=== PATIENT | male | born 1975 | race Caucasian/White ===

== ENCOUNTER 2022-12-23 09:30 | Inpatient (IN) | payer OTHER ==
[2022-12-23 10:28] VITALS: BMI 27.8
[2022-12-23] MEDS ORDERED: BENZOCAINE/MENTHOL (CHLORASEPTIC ) LOZENGE MM PRN (11:17)
[2022-12-23] MEDS ORDERED: MAGNESIUM HYDROX 2400MG/30ML ORAL SUSPENSION 30 ML CUP PO PRN (11:17)
[2022-12-23] MEDS ORDERED: DICYCLOMINE HCL 10 MG CAPSULE PO PRN (11:17)
[2022-12-23] MEDS ORDERED: guaiFENesin 600 MG TABLET.ER (FP) PO PRN (11:17)
[2022-12-23] MEDS ORDERED: BISMUTH SUBSALICYLATE 524 MG/30 ML PO PRN (11:17)
[2022-12-23] MEDS ORDERED: NALOXONE HCL 0.4 MG/ML VIAL IM PRN (11:17)
[2022-12-23] MEDS ORDERED: BENZONATATE 200 MG CAPSULE PO PRN (11:17)
[2022-12-23] MEDS ORDERED: IBUPROFEN 400 MG TABLET (FP) PO PRN (11:17)
[2022-12-23] MEDS ORDERED: POLYETHYLENE GLYCOL (HEALTHYLAX) 3350 17 GM PACKET PO PRN (11:17)
[2022-12-23] MEDS ORDERED: NICOTINE POLACRILEX 2 MG GUM BUC PRN (11:17)
[2022-12-23] MEDS ORDERED: LOPERAMIDE HCL 2 MG CAPSULE PO PRN (11:17)
[2022-12-23] MEDS ORDERED: NALOXONE HCL (KLOXXADO) 8 MG SPRAY NS PRN (11:17)
[2022-12-23] MEDS ORDERED: MAG HYDROX/AL HYDROX/SIMETH 30 ML UNIT-DOSE CUP PO PRN (11:17)
[2022-12-23] MEDS ORDERED: diazePAM 5 MG TABLET ONE (11:28)
[2022-12-23] MEDS: diazePAM 5 MG TABLET PO ONE ×2 (11:30→16:16)
[2022-12-23 14:20] LABS: HEMATOCRIT 37.9 % (35.4-49); MCH 33.5 pg (25.7-33.7); MCHC 34.3 g/dl (32.0-35.9); MEAN CELL VOLUME 97.9 fl (80-96); MEAN PLT VOLUME 8.3 fl (7.5-11.1); PLATELET COUNT 167 10^3/uL (134-434); RBC 3.88 M/mm3 (4.00-5.60); RDW 14.2 % (11.9-15.9); WHITE BLOOD COUNT 3.1 K/mm3 (4.0-10.0)
[2022-12-23 14:41] LABS: ALBUMIN 3.8 g/dl (3.4-5.0)
[2022-12-23 14:42] LABS: CALCIUM 8.8 mg/dL (8.5-10.1)
[2022-12-23 14:43] LABS: BLOOD UREA NITROGEN 18.5 mg/dL (7-18)
[2022-12-23 14:45] LABS: TOT PROT 7.3 g/dl (6.4-8.2)
[2022-12-23 14:46] LABS: BILIRUBIN,TOTAL 0.4 mg/dL (0.2-1); CREATININE 0.7 mg/dL (0.55-1.3)
[2022-12-23] MEDS: METHOCARBAMOL 500 MG TABLET PO PRN (15:49)
[2022-12-23] MEDS: TRIMETHOBENZAMIDE HCL 200MG/2ML INJ IM PRN (15:50)
[2022-12-23] MEDS: diazePAM 5 MG TABLET PO SCH ×2 (17:00→22:11)
[2022-12-23] MEDS: MELATONIN 5 MG TABLETS PO SCH (22:10)
[2022-12-23] MEDS: THIAMINE HCL 100 MG TABLET (FP) PO SCH (22:11)
[2022-12-24] MEDS: diazePAM 5 MG TABLET PO SCH ×4 (05:24→22:09)
[2022-12-24] MEDS: TRIMETHOBENZAMIDE HCL 200MG/2ML INJ IM PRN (05:25)
[2022-12-24] MEDS: methaDONE HCL 40 MG DISPERSABLE TABLET PO SCH (06:10)
[2022-12-24] MEDS: PRENATAL VITAMINS W/ FOLIC ACID TABLET (FP) PO SCH (10:14)
[2022-12-24] MEDS: IBUPROFEN 600 MG TABLET (FP) PO PRN ×2 (10:15→22:14)
[2022-12-24] MEDS: NICOTINE 10 MG CARTRIDGE (INHALER) IH PRN (10:18)
[2022-12-24] MEDS: METHOCARBAMOL 500 MG TABLET PO PRN ×2 (10:19→17:21)
[2022-12-24] MEDS: diazePAM 5 MG TABLET PO PRN ×2 (14:16→19:09)
[2022-12-24] MEDS: MELATONIN 5 MG TABLETS PO SCH (22:11)
[2022-12-24] MEDS: THIAMINE HCL 100 MG TABLET (FP) PO SCH (22:11)
[2022-12-25] MEDS: methaDONE HCL 40 MG DISPERSABLE TABLET PO SCH (05:09)
[2022-12-25] MEDS: diazePAM 5 MG TABLET PO SCH ×3 (05:11→22:21)
[2022-12-25] MEDS: IBUPROFEN 600 MG TABLET (FP) PO PRN ×2 (05:11→13:11)
[2022-12-25] MEDS: PRENATAL VITAMINS W/ FOLIC ACID TABLET (FP) PO SCH (10:19)
[2022-12-25] MEDS: diazePAM 5 MG TABLET PO PRN (10:21)
[2022-12-25] MEDS: ACETAMINOPHEN 325 MG TABLET (FP) PO PRN ×2 (10:21→17:32)
[2022-12-25] MEDS: NICOTINE 10 MG CARTRIDGE (INHALER) IH PRN ×2 (10:23→17:43)
[2022-12-25] MEDS ORDERED: MELATONIN 5 MG TABLETS PO SCH (14:49)
[2022-12-25] MEDS: METHOCARBAMOL 500 MG TABLET PO PRN ×2 (17:32→22:22)
[2022-12-25] MEDS: THIAMINE HCL 100 MG TABLET (FP) PO SCH (22:20)
[2022-12-26] MEDS: methaDONE HCL 40 MG DISPERSABLE TABLET PO SCH (05:07)
[2022-12-26] MEDS: IBUPROFEN 600 MG TABLET (FP) PO PRN ×3 (05:08→22:08)
[2022-12-26] MEDS: diazePAM 5 MG TABLET PO SCH ×2 (05:08→17:28)
[2022-12-26] MEDS: NICOTINE 10 MG CARTRIDGE (INHALER) IH PRN ×3 (06:37→14:27)
[2022-12-26] MEDS: PRENATAL VITAMINS W/ FOLIC ACID TABLET (FP) PO SCH (10:27)
[2022-12-26] MEDS: ACETAMINOPHEN 325 MG TABLET (FP) PO PRN (10:28)
[2022-12-26] MEDS: METHOCARBAMOL 500 MG TABLET PO PRN ×2 (10:29→22:09)
[2022-12-26 11:18] LABS: URINE APPEARANCE CLEAR; URINE BILIRUBIN NEGATIVE (NEGATIVE); URINE COLOR YELLOW; URINE GLUCOSE (UA) NEGATIVE (NEGATIVE); URINE KETONE NEGATIVE (NEGATIVE); URINE LEUK ESTERASE NEGATIVE (NEGATIVE); URINE NITRITE NEGATIVE (NEGATIVE); URINE PROTEIN NEGATIVE (NEGATIVE); URINE UROBILINOGEN 0.2 mg/dL (0.2-1.0)
[2022-12-26] MEDS: TOLNAFTATE 1% CREAM 15 GM TUBE TP SCH ×2 (12:50→22:09)
[2022-12-26] MEDS ORDERED: SUVOREXANT 10 MG TABLET PO PRN (22:00)
[2022-12-26] MEDS: THIAMINE HCL 100 MG TABLET (FP) PO SCH (22:09)
[2022-12-27] MEDS: methaDONE HCL 40 MG DISPERSABLE TABLET PO SCH (05:16)
[2022-12-27] MEDS: IBUPROFEN 600 MG TABLET (FP) PO PRN (05:17)
[2022-12-27] MEDS ORDERED: diazePAM 5 MG TABLET PO ONE (06:00)
[2022-12-27] MEDS: NICOTINE 10 MG CARTRIDGE (INHALER) IH PRN ×2 (06:03→10:25)
[2022-12-27 09:54] VITALS: BP 136/89; PULSE 79; RESP 18; TEMP 98.3
[2022-12-27] MEDS: PRENATAL VITAMINS W/ FOLIC ACID TABLET (FP) PO SCH (10:24)
[2022-12-27] MEDS: ACETAMINOPHEN 325 MG TABLET (FP) PO PRN (10:25)
[2022-12-27] MEDS: TOLNAFTATE 1% CREAM 15 GM TUBE TP SCH (10:29)
== END 2022-12-27 11:55 | disposition other institution (70) | DRG 773 ==
LOC: YASAS 09:30 → Y6N 11:37
PROVIDERS: ADMIT Allergy & Immunology; ATTEND Surgery
PROC: HZ2ZZZZ Detoxification Services for Substance Abuse Treatment (ICD-10-PCS; principal; 2022-12-23)
DX: F11.23 Opioid dependence with withdrawal (principal); F10.230 Alcohol dependence with withdrawal, uncomplicated; F13.20 Sedative, hypnotic or anxiolytic dependence, uncomplicated; F17.210 Nicotine dependence, cigarettes, uncomplicated; F19.280 Other psychoactive substance dependence with psychoactive substance-induced anxiety disorder; F19.282 Other psychoactive substance dependence with psychoactive substance-induced sleep disorder; F43.10 Post-traumatic stress disorder, unspecified; J43.9 Emphysema, unspecified; Z86.69 Personal history of other diseases of the nervous system and sense organs; Z56.0 Unemployment, unspecified; Z59.01 Sheltered homelessness
CPT/HCPCS: 36415; 71046-TC-FY; 80053; 81003; 82140; 85027; 86780; 87811; C9803-CS; Q0162; U0003; U0005

== ENCOUNTER 2022-12-27 11:12 | Inpatient (IN) | payer OTHER ==
[2022-12-27] MEDS ORDERED: MAG HYDROX/AL HYDROX/SIMETH 30 ML UNIT-DOSE CUP PO PRN (12:16)
[2022-12-27] MEDS ORDERED: NICOTINE POLACRILEX 4 MG GUM BUC PRN (12:16)
[2022-12-27] MEDS ORDERED: BENZOCAINE/MENTHOL (CHLORASEPTIC ) LOZENGE MM PRN (12:16)
[2022-12-27] MEDS ORDERED: NALOXONE HCL (KLOXXADO) 8 MG SPRAY NS PRN (12:16)
[2022-12-27] MEDS ORDERED: LOPERAMIDE HCL 2 MG CAPSULE PO PRN (12:16)
[2022-12-27] MEDS ORDERED: BENZONATATE 200 MG CAPSULE PO PRN (12:16)
[2022-12-27] MEDS ORDERED: MAGNESIUM HYDROX 2400MG/30ML ORAL SUSPENSION 30 ML CUP PO PRN (12:16)
[2022-12-27] MEDS ORDERED: NICOTINE 14 MG/24 HOURS TOPICAL PATCH TD PRN (12:16)
[2022-12-27] MEDS ORDERED: guaiFENesin 600 MG TABLET.ER (FP) PO PRN (12:16)
[2022-12-27] MEDS ORDERED: NALOXONE HCL 0.4 MG/ML VIAL IVPUSH PRN (12:16)
[2022-12-27] MEDS ORDERED: POLYETHYLENE GLYCOL (HEALTHYLAX) 3350 17 GM PACKET PO PRN (12:16)
[2022-12-27] MEDS: GABAPENTIN 300 MG CAPSULE PO SCH ×2 (13:07→21:24)
[2022-12-27] MEDS: MELATONIN 5 MG TABLETS PO SCH (21:25)
[2022-12-27] MEDS: METHOCARBAMOL 500 MG TABLET PO PRN (21:25)
[2022-12-27] MEDS: THIAMINE HCL 100 MG TABLET (FP) PO SCH (21:25)
[2022-12-27] MEDS: hydrOXYzine PAMOATE 25 MG CAPSULE (FP) PO PRN (21:25)
[2022-12-27] MEDS: IBUPROFEN 600 MG TABLET (FP) PO PRN (21:29)
[2022-12-28] MEDS: GABAPENTIN 300 MG CAPSULE PO SCH ×3 (06:17→21:16)
[2022-12-28] MEDS: methaDONE HCL 40 MG DISPERSABLE TABLET PO SCH (06:17)
[2022-12-28] MEDS: IBUPROFEN 600 MG TABLET (FP) PO PRN ×2 (06:19→14:15)
[2022-12-28] MEDS: NICOTINE 10 MG CARTRIDGE (INHALER) IH PRN ×3 (06:39→21:18)
[2022-12-28] MEDS: PRENATAL VITAMINS W/ FOLIC ACID TABLET (FP) PO SCH (09:41)
[2022-12-28] MEDS: TOLNAFTATE 1% CREAM 15 GM TUBE TP SCH ×2 (09:42→21:25)
[2022-12-28] MEDS: THIAMINE HCL 100 MG TABLET (FP) PO SCH (21:15)
[2022-12-28] MEDS: MELATONIN 5 MG TABLETS PO SCH (21:15)
[2022-12-28] MEDS: hydrOXYzine PAMOATE 25 MG CAPSULE (FP) PO PRN (21:16)
[2022-12-28] MEDS: IBUPROFEN 400 MG TABLET (FP) PO PRN (21:16)
[2022-12-29] MEDS: methaDONE HCL 40 MG DISPERSABLE TABLET PO SCH (06:15)
[2022-12-29] MEDS: GABAPENTIN 300 MG CAPSULE PO SCH ×3 (06:15→21:09)
[2022-12-29] MEDS: IBUPROFEN 600 MG TABLET (FP) PO PRN (06:16)
[2022-12-29] MEDS: NICOTINE 10 MG CARTRIDGE (INHALER) IH PRN ×2 (06:19→14:16)
[2022-12-29] MEDS: PRENATAL VITAMINS W/ FOLIC ACID TABLET (FP) PO SCH (09:35)
[2022-12-29] MEDS: ACETAMINOPHEN 325 MG TABLET (FP) PO PRN (09:36)
[2022-12-29] MEDS: TOLNAFTATE 1% CREAM 15 GM TUBE TP SCH ×2 (10:55→21:19)
[2022-12-29] MEDS: IBUPROFEN 400 MG TABLET (FP) PO PRN ×2 (14:17→21:10)
[2022-12-29] MEDS: THIAMINE HCL 100 MG TABLET (FP) PO SCH (21:08)
[2022-12-29] MEDS: MELATONIN 5 MG TABLETS PO SCH (21:08)
[2022-12-29] MEDS: hydrOXYzine PAMOATE 25 MG CAPSULE (FP) PO PRN (21:09)
[2022-12-30] MEDS: GABAPENTIN 300 MG CAPSULE PO SCH ×3 (06:12→21:06)
[2022-12-30] MEDS: methaDONE HCL 40 MG DISPERSABLE TABLET PO SCH (06:12)
[2022-12-30] MEDS: IBUPROFEN 600 MG TABLET (FP) PO PRN ×4 (06:13→21:08)
[2022-12-30] MEDS: NICOTINE 10 MG CARTRIDGE (INHALER) IH PRN ×3 (06:14→21:08)
[2022-12-30] MEDS: TOLNAFTATE 1% CREAM 15 GM TUBE TP SCH ×2 (09:32→21:10)
[2022-12-30] MEDS: PRENATAL VITAMINS W/ FOLIC ACID TABLET (FP) PO SCH (09:33)
[2022-12-30] MEDS: MELATONIN 5 MG TABLETS PO SCH (21:06)
[2022-12-30] MEDS: THIAMINE HCL 100 MG TABLET (FP) PO SCH (21:06)
[2022-12-30] MEDS: hydrOXYzine PAMOATE 25 MG CAPSULE (FP) PO PRN (21:07)
[2022-12-30] MEDS: BACITRACIN 0.9 GM PACKET TP SCH (21:08)
[2022-12-31] MEDS: IBUPROFEN 600 MG TABLET (FP) PO PRN ×2 (06:20→21:17)
[2022-12-31] MEDS: methaDONE HCL 40 MG DISPERSABLE TABLET PO SCH (06:20)
[2022-12-31] MEDS: GABAPENTIN 300 MG CAPSULE PO SCH ×3 (06:20→21:17)
[2022-12-31] MEDS: NICOTINE 10 MG CARTRIDGE (INHALER) IH PRN ×3 (06:37→21:17)
[2022-12-31] MEDS: PRENATAL VITAMINS W/ FOLIC ACID TABLET (FP) PO SCH (09:31)
[2022-12-31] MEDS: BACITRACIN 0.9 GM PACKET TP SCH ×2 (09:31→21:17)
[2022-12-31] MEDS: TOLNAFTATE 1% CREAM 15 GM TUBE TP SCH ×2 (09:31→21:19)
[2022-12-31] MEDS: ACETAMINOPHEN 325 MG TABLET (FP) PO PRN (09:32)
[2022-12-31] MEDS: MELATONIN 5 MG TABLETS PO SCH (21:16)
[2022-12-31] MEDS: THIAMINE HCL 100 MG TABLET (FP) PO SCH (21:17)
[2022-12-31] MEDS: hydrOXYzine PAMOATE 25 MG CAPSULE (FP) PO PRN (21:17)
[2023-01-01] MEDS: methaDONE HCL 40 MG DISPERSABLE TABLET PO SCH (06:20)
[2023-01-01] MEDS: GABAPENTIN 300 MG CAPSULE PO SCH ×3 (06:20→21:12)
[2023-01-01] MEDS: IBUPROFEN 600 MG TABLET (FP) PO PRN ×2 (06:20→21:14)
[2023-01-01] MEDS: NICOTINE 10 MG CARTRIDGE (INHALER) IH PRN ×3 (06:21→21:12)
[2023-01-01] MEDS: BACITRACIN 0.9 GM PACKET TP SCH ×2 (09:27→21:12)
[2023-01-01] MEDS: PRENATAL VITAMINS W/ FOLIC ACID TABLET (FP) PO SCH (09:27)
[2023-01-01] MEDS: TOLNAFTATE 1% CREAM 15 GM TUBE TP SCH ×2 (09:27→22:32)
[2023-01-01] MEDS: ACETAMINOPHEN 325 MG TABLET (FP) PO PRN (09:28)
[2023-01-01] MEDS: THIAMINE HCL 100 MG TABLET (FP) PO SCH (21:12)
[2023-01-01] MEDS: hydrOXYzine PAMOATE 25 MG CAPSULE (FP) PO PRN (21:12)
[2023-01-01] MEDS: MELATONIN 5 MG TABLETS PO SCH (21:12)
[2023-01-01] MEDS: METHOCARBAMOL 500 MG TABLET PO PRN (21:12)
[2023-01-02] MEDS: methaDONE HCL 40 MG DISPERSABLE TABLET PO SCH (06:10)
[2023-01-02] MEDS: GABAPENTIN 300 MG CAPSULE PO SCH ×3 (06:10→21:11)
[2023-01-02] MEDS: IBUPROFEN 400 MG TABLET (FP) PO PRN ×2 (06:11→21:10)
[2023-01-02] MEDS: NICOTINE 10 MG CARTRIDGE (INHALER) IH PRN ×3 (06:12→21:09)
[2023-01-02] MEDS: ACETAMINOPHEN 325 MG TABLET (FP) PO PRN (09:38)
[2023-01-02] MEDS: TOLNAFTATE 1% CREAM 15 GM TUBE TP SCH ×2 (09:38→22:42)
[2023-01-02] MEDS: BACITRACIN 0.9 GM PACKET TP SCH ×2 (09:38→21:09)
[2023-01-02] MEDS: PRENATAL VITAMINS W/ FOLIC ACID TABLET (FP) PO SCH (09:38)
[2023-01-02] MEDS: THIAMINE HCL 100 MG TABLET (FP) PO SCH (21:10)
[2023-01-02] MEDS: MELATONIN 5 MG TABLETS PO SCH (21:11)
[2023-01-03] MEDS: methaDONE HCL 40 MG DISPERSABLE TABLET PO SCH (06:19)
[2023-01-03] MEDS: hydrOXYzine PAMOATE 25 MG CAPSULE (FP) PO PRN ×2 (06:19→21:07)
[2023-01-03] MEDS: GABAPENTIN 300 MG CAPSULE PO SCH ×3 (06:19→21:07)
[2023-01-03] MEDS: IBUPROFEN 400 MG TABLET (FP) PO PRN (06:21)
[2023-01-03] MEDS: BACITRACIN 0.9 GM PACKET TP SCH ×2 (09:45→21:07)
[2023-01-03] MEDS: PRENATAL VITAMINS W/ FOLIC ACID TABLET (FP) PO SCH (09:45)
[2023-01-03] MEDS: TOLNAFTATE 1% CREAM 15 GM TUBE TP SCH ×2 (09:45→21:09)
[2023-01-03] MEDS: NICOTINE 10 MG CARTRIDGE (INHALER) IH PRN (12:45)
[2023-01-03] MEDS: MELATONIN 5 MG TABLETS PO SCH (21:07)
[2023-01-03] MEDS: THIAMINE HCL 100 MG TABLET (FP) PO SCH (21:07)
[2023-01-03] MEDS: IBUPROFEN 600 MG TABLET (FP) PO PRN (21:08)
[2023-01-04] MEDS: methaDONE HCL 40 MG DISPERSABLE TABLET PO SCH (06:04)
[2023-01-04] MEDS: GABAPENTIN 300 MG CAPSULE PO SCH ×3 (06:04→21:14)
[2023-01-04] MEDS: NICOTINE 10 MG CARTRIDGE (INHALER) IH PRN ×2 (06:05→11:52)
[2023-01-04] MEDS: TOLNAFTATE 1% CREAM 15 GM TUBE TP SCH ×2 (09:37→22:11)
[2023-01-04] MEDS: BACITRACIN 0.9 GM PACKET TP SCH ×2 (09:37→21:14)
[2023-01-04] MEDS: PRENATAL VITAMINS W/ FOLIC ACID TABLET (FP) PO SCH (09:37)
[2023-01-04] MEDS: IBUPROFEN 400 MG TABLET (FP) PO PRN (09:39)
[2023-01-04] MEDS: IBUPROFEN 600 MG TABLET (FP) PO PRN (21:14)
[2023-01-04] MEDS: hydrOXYzine PAMOATE 25 MG CAPSULE (FP) PO PRN (21:14)
[2023-01-04] MEDS: THIAMINE HCL 100 MG TABLET (FP) PO SCH (21:14)
[2023-01-04] MEDS: MELATONIN 5 MG TABLETS PO SCH (21:14)
[2023-01-05] MEDS: methaDONE HCL 40 MG DISPERSABLE TABLET PO SCH (06:00)
[2023-01-05] MEDS: GABAPENTIN 300 MG CAPSULE PO SCH ×3 (06:01→21:19)
[2023-01-05] MEDS: IBUPROFEN 400 MG TABLET (FP) PO PRN (06:01)
[2023-01-05] MEDS: NICOTINE 10 MG CARTRIDGE (INHALER) IH PRN ×3 (06:04→21:19)
[2023-01-05] MEDS: TOLNAFTATE 1% CREAM 15 GM TUBE TP SCH ×2 (10:07→21:21)
[2023-01-05] MEDS: PRENATAL VITAMINS W/ FOLIC ACID TABLET (FP) PO SCH (10:07)
[2023-01-05] MEDS: BACITRACIN 0.9 GM PACKET TP SCH ×2 (10:07→21:18)
[2023-01-05] MEDS: MELATONIN 5 MG TABLETS PO SCH (21:18)
[2023-01-05] MEDS: IBUPROFEN 600 MG TABLET (FP) PO PRN (21:18)
[2023-01-05] MEDS: THIAMINE HCL 100 MG TABLET (FP) PO SCH (21:18)
[2023-01-05] MEDS: hydrOXYzine PAMOATE 25 MG CAPSULE (FP) PO PRN (21:19)
[2023-01-06] MEDS: methaDONE HCL 40 MG DISPERSABLE TABLET PO SCH (06:02)
[2023-01-06] MEDS: GABAPENTIN 300 MG CAPSULE PO SCH ×3 (06:02→21:37)
[2023-01-06] MEDS: IBUPROFEN 600 MG TABLET (FP) PO PRN (06:04)
[2023-01-06] MEDS: NICOTINE 10 MG CARTRIDGE (INHALER) IH PRN ×3 (06:39→21:38)
[2023-01-06] MEDS ORDERED: COLLOIDAL OATMEAL 1 BAR EACH TP PRN (09:15)
[2023-01-06] MEDS: PRENATAL VITAMINS W/ FOLIC ACID TABLET (FP) PO SCH (09:36)
[2023-01-06] MEDS: BACITRACIN 0.9 GM PACKET TP SCH ×2 (09:36→21:37)
[2023-01-06] MEDS: TOLNAFTATE 1% CREAM 15 GM TUBE TP SCH ×2 (09:37→22:29)
[2023-01-06] MEDS: THIAMINE HCL 100 MG TABLET (FP) PO SCH (21:37)
[2023-01-06] MEDS: IBUPROFEN 400 MG TABLET (FP) PO PRN (21:37)
[2023-01-06] MEDS: MELATONIN 5 MG TABLETS PO SCH (21:37)
[2023-01-06] MEDS: hydrOXYzine PAMOATE 25 MG CAPSULE (FP) PO PRN (21:37)
[2023-01-07] MEDS: methaDONE HCL 40 MG DISPERSABLE TABLET PO SCH (06:10)
[2023-01-07] MEDS: GABAPENTIN 300 MG CAPSULE PO SCH ×3 (06:10→21:05)
[2023-01-07] MEDS: IBUPROFEN 600 MG TABLET (FP) PO PRN ×2 (06:11→21:06)
[2023-01-07] MEDS: NICOTINE 10 MG CARTRIDGE (INHALER) IH PRN ×3 (06:14→21:05)
[2023-01-07] MEDS: TOLNAFTATE 1% CREAM 15 GM TUBE TP SCH ×2 (09:33→23:07)
[2023-01-07] MEDS: BACITRACIN 0.9 GM PACKET TP SCH ×2 (09:33→21:05)
[2023-01-07] MEDS: PRENATAL VITAMINS W/ FOLIC ACID TABLET (FP) PO SCH (09:33)
[2023-01-07] MEDS: MELATONIN 5 MG TABLETS PO SCH (21:05)
[2023-01-07] MEDS: THIAMINE HCL 100 MG TABLET (FP) PO SCH (21:05)
[2023-01-07] MEDS: hydrOXYzine PAMOATE 25 MG CAPSULE (FP) PO PRN (21:05)
[2023-01-08] MEDS: GABAPENTIN 300 MG CAPSULE PO SCH ×3 (06:10→21:11)
[2023-01-08] MEDS: methaDONE HCL 40 MG DISPERSABLE TABLET PO SCH (06:10)
[2023-01-08] MEDS: IBUPROFEN 600 MG TABLET (FP) PO PRN ×2 (06:11→21:11)
[2023-01-08] MEDS: NICOTINE 10 MG CARTRIDGE (INHALER) IH PRN ×3 (06:13→21:12)
[2023-01-08] MEDS: PRENATAL VITAMINS W/ FOLIC ACID TABLET (FP) PO SCH (09:29)
[2023-01-08] MEDS: BACITRACIN 0.9 GM PACKET TP SCH ×2 (09:29→21:11)
[2023-01-08] MEDS: TOLNAFTATE 1% CREAM 15 GM TUBE TP SCH ×2 (09:29→21:12)
[2023-01-08] MEDS: THIAMINE HCL 100 MG TABLET (FP) PO SCH (21:11)
[2023-01-08] MEDS: MELATONIN 5 MG TABLETS PO SCH (21:11)
[2023-01-08] MEDS: hydrOXYzine PAMOATE 25 MG CAPSULE (FP) PO PRN (21:11)
[2023-01-09] MEDS: GABAPENTIN 300 MG CAPSULE PO SCH ×3 (06:22→21:19)
[2023-01-09] MEDS: IBUPROFEN 400 MG TABLET (FP) PO PRN (06:22)
[2023-01-09] MEDS: methaDONE HCL 40 MG DISPERSABLE TABLET PO SCH (06:23)
[2023-01-09] MEDS: NICOTINE 10 MG CARTRIDGE (INHALER) IH PRN ×3 (06:23→21:19)
[2023-01-09] MEDS: BACITRACIN 0.9 GM PACKET TP SCH ×2 (10:13→21:19)
[2023-01-09] MEDS: TOLNAFTATE 1% CREAM 15 GM TUBE TP SCH ×2 (10:13→21:20)
[2023-01-09] MEDS: PRENATAL VITAMINS W/ FOLIC ACID TABLET (FP) PO SCH (10:13)
[2023-01-09] MEDS: MELATONIN 5 MG TABLETS PO SCH (21:18)
[2023-01-09] MEDS: THIAMINE HCL 100 MG TABLET (FP) PO SCH (21:18)
[2023-01-09] MEDS: hydrOXYzine PAMOATE 25 MG CAPSULE (FP) PO PRN (21:19)
[2023-01-09] MEDS: IBUPROFEN 600 MG TABLET (FP) PO PRN (21:19)
[2023-01-10] MEDS: GABAPENTIN 300 MG CAPSULE PO SCH (06:13)
[2023-01-10] MEDS: methaDONE HCL 40 MG DISPERSABLE TABLET PO SCH (06:14)
[2023-01-10] MEDS: IBUPROFEN 400 MG TABLET (FP) PO PRN (06:16)
[2023-01-10] MEDS: NICOTINE 10 MG CARTRIDGE (INHALER) IH PRN (06:17)
[2023-01-10 06:33] VITALS: BP 114/73; PULSE 60; RESP 16; TEMP 98.7
== END 2023-01-10 09:05 | disposition home or self-care (01) | DRG 772 ==
LOC: YASAS 11:12 → Y3E 11:13
PROVIDERS: ADMIT Allergy & Immunology; ATTEND Psychiatry & Neurology Pain Medicine
PROC: HZ42ZZZ Group Counseling for Substance Abuse Treatment, Cognitive-Behavioral (ICD-10-PCS; principal; 2022-12-27)
DX: F10.20 Alcohol dependence, uncomplicated (principal); F11.20 Opioid dependence, uncomplicated; F13.20 Sedative, hypnotic or anxiolytic dependence, uncomplicated; F17.210 Nicotine dependence, cigarettes, uncomplicated; F19.280 Other psychoactive substance dependence with psychoactive substance-induced anxiety disorder; F19.282 Other psychoactive substance dependence with psychoactive substance-induced sleep disorder; F43.10 Post-traumatic stress disorder, unspecified; J43.9 Emphysema, unspecified; Z86.11 Personal history of tuberculosis; Z86.19 Personal history of other infectious and parasitic diseases; Z59.01 Sheltered homelessness
CPT/HCPCS: 36415; 82140; 86803; 93005; 93010